=== PATIENT | female | born 1995 | race Caucasian/White ===

== ENCOUNTER 2020-09-19 00:31 | Inpatient (IN) | payer BC ==
[2020-09-19] MEDS ORDERED: Terbutaline 1 MG/ML SDV SUBCUT PRN (01:35)
[2020-09-19] MEDS ORDERED: Lidocaine 1% 50 ML MDV INJECT PRN (01:35)
[2020-09-19] MEDS ORDERED: Methylergonovine 0.2 MG/1 ML Amp IM PRN (01:35)
[2020-09-19] MEDS ORDERED: Carboprost Tromethamine 250 MCG/1 ML Amp IM PRN (01:35)
[2020-09-19] MEDS ORDERED: Sodium Chloride 0.9% 10 ML SDV IV PRN (01:35)
[2020-09-19] MEDS ORDERED: Butorphanol 1 MG/ML SDV IVPUSH PRN (01:35)
[2020-09-19] MEDS ORDERED: Nalbuphine 10 MG/1 ML Vial IVPUSH PRN (01:35)
[2020-09-19] MEDS ORDERED: Sodium Chloride 0.9% 10 ML Syringe FLUSH PRN (01:35)
[2020-09-19] MEDS ORDERED: Misoprostol 200 MCG Tab PO PRN (01:35)
[2020-09-19] MEDS ORDERED: Misoprostol 25 MCG (1/4 of 100 MCG) Tab VAG PRN ×2 (01:35)
[2020-09-19] MEDS ORDERED: Tranexamic Acid 1,000 MG in Sodium Chloride 0.9% 100 ML IV PRN (01:35)
[2020-09-19] MEDS ORDERED: Sodium Chloride 0.9% 2.5 ML Syringe FLUSH PRN (01:35)
[2020-09-19] MEDS ORDERED: Water For Irrigation,Sterile 1,000 ML Container IRR PRN (01:35)
[2020-09-19] MEDS ORDERED: Oxytocin/0.9 % Sodium Chloride 30 UNIT/500 ML BAG IV SCH ×2 (01:45)
[2020-09-19] MEDS: Lactated Ringers 1,000 ML IV SCH ×2 (05:00→10:15)
[2020-09-19] MEDS ORDERED: Ropivacaine HCl/PF 100 ML ONE (08:23)
--- NOTE | 2020-09-19 09:06 | PCM.PREANE ---
Preanesthetic Assessment - Procedure Proposed Procedure: continuous labor epidural - Anesthesia/Transfusion/Family Hx Anesthesia History: No Prior Anesthesia Family History of Anesthesia Reaction: No Transfusion History: No Prior Transfusion(s) - Review of Systems General: No Symptoms Pulmonary: No Symptoms Cardiovascular: No Symptoms Gastrointestinal: No Symptoms Neurological: No Symptoms Other: Reports: None - Physical Assessment Height: 5 ft 8 in Weight: 68.946 kg ASA Class: 2 Mental Status: Alert & Oriented x3 Airway Class: Mallampati = 1 Dentition: Reports: Normal Dentition ROM/Head Extension: Full Lungs: Clear to Auscultation, Normal Respiratory Effort Cardiovascular: Regular Rate, Regular Rhythm - Lab Values: Laboratory Last Values WBC 9.25 K/uL (4.0-11.0) 09/19/20 05:08 RBC 3.54 M/uL (4.30-5.90) L 09/19/20 05:08 Hgb 10.2 g/dL (12.0-16.0) L 09/19/20 05:08 Hct 32.3 % (36.0-46.0) L 09/19/20 05:08 MCV 91.2 fL (80.0-98.0) 09/19/20 05:08 MCH 28.8 pg (27.0-32.0) 09/19/20 05:08 MCHC 31.6 g/dL (31.0-37.0) 09/19/20 05:08 RDW Std Deviation 43.3 fl (28.0-62.0) 09/19/20 05:08 RDW Coeff of Linn 13 % (11.0-15.0) 09/19/20 05:08 Plt Count 287 K/uL (150-400) 09/19/20 05:08 MPV 10.20 fL (7.40-12.00) 09/19/20 05:08 Nucleated RBC % 0.0 /100WBC 09/19/20 05:08 Nucleated RBCs # 0 K/uL 09/19/20 05:08 SARS-CoV-2 RNA (FLAVIA) NEGATIVE (NEGATIVE) 09/19/20 00:45 Blood Type A POSITIVE 09/19/20 05:08 Antibody Screen NEGATIVE 09/19/20 05:08 - Allergies Allergies/Adverse Reactions: Allergies Allergy/AdvReac Type Severity Reaction Status Date / Time No Known Allergies Allergy Verified 09/19/20 07:26 - Acknowledgements Anesthesia Type Planned: Epidural Pt an Appropriate Candidate for the Planned Anesthesia: Yes Alternatives and Risks of Anesthesia Discussed w Pt/Guardian: Yes Pt/Guardian Understands and Agrees with Anesthesia Plan: Yes PreAnesthesia Questionnaire - Past Health History Medical/Surgical History: Denies Medical/Surgical History Cardiovascular History: Reports: None Respiratory History: Reports: None Gastrointestinal History: Reports: None Genitourinary History: Reports: None [employer] History: Reports: : 1 Para: 0 Musculoskeletal History: Reports: None Neurological History: Reports: None Psychiatric History: Reports: None Endocrine/Metabolic History: Reports: None Hematologic History: Reports: None Immunologic History: Reports: None - Past Surgical History Head Surgeries/Procedures: Reports: None - SUBSTANCE USE Tobacco Use Status *Q: Never Tobacco User Second Hand Smoke Exposure: No Recreational Drug Use History: No - CURRENT (IN HOUSE) MEDS Current Meds: Current Medications Butorphanol Tartrate (Stadol) 1 mg IVPUSH Q1H PRN PRN Reason: Pain Carboprost Tromethamine (Hemabate Ds) 250 mcg IM ASDIRECTED PRN PRN Reason: Post Hemorrhage Oxytocin/Sodium Chloride (Oxytocin 30 Unit/500 Ml-Ns) 30 unit in 500 mls @ 999 mls/hr IV TITRATE GREGOR Tranexamic Acid 1,000 mg/ (Sodium Chloride) 110 mls @ 660 mls/hr IV ONETIME PRN PRN Reason: Bleeding Oxytocin/Sodium Chloride (Oxytocin 30 Unit/500 Ml-Ns) 30 unit in 500 mls @ 2 mls/hr IV TITRATE GREGOR; Protocol Last Admin: 09/19/20 07:31 Dose: 2 munits/min, 2 mls/hr Documented by: Lactated Ringer's (Ringers, Lactated) 1,000 mls @ 150 mls/hr IV ASDIRECTED GREGOR Last Infusion: 09/19/20 07:32 Dose: Infused Documented by: Lidocaine HCl (Xylocaine 1%) 50 ml INJECT ONETIME PRN PRN Reason: Laceration repair Methylergonovine Maleate (Methergine) 0.2 mg IM ASDIRECTED PRN PRN Reason: Post Hemorrhage Misoprostol (Cytotec) 200 mcg PO ONETIME PRN PRN Reason: Post Hemorrhage Misoprostol (Cytotec) 25 mcg VAG ONETIME PRN PRN Reason: Cervical Ripening Misoprostol (Cytotec) 25 mcg VAG Q4H PRN PRN Reason: Cervical Ripening Nalbuphine HCl (Nubain) 10 mg IVPUSH Q1H PRN PRN Reason: Pain (severe 7-10) Sodium Chloride (Saline Flush) 10 ml FLUSH ASDIRECTED PRN PRN Reason: Keep Vein Open Sodium Chloride (Saline Flush) 2.5 ml FLUSH ASDIRECTED PRN PRN Reason: Keep Vein Open Sodium Chloride (Normal Saline) 10 ml IV ASDIRECTED PRN PRN Reason: IV Use Sterile Water (Sterile Water For Irrigation) 1,000 ml IRR ASDIRECTED PRN PRN Reason: delivery Terbutaline Sulfate (Brethine) 0.25 mg SUBCUT ASDIRECTED PRN PRN Reason: Tacysystole Discontinued Medications Ropivacaine (Naropin 0.2%) Confirm Administered Dose 100 mls @ as directed .ROUTE .[facility] ONE Stop: 09/19/20 08:24
[2020-09-19] MEDS ORDERED: ePHEDrine 50 MG/ML SDV ONE (09:09)
--- NOTE | 2020-09-19 15:18 | PCM.DEL ---
L & D Note - General Info Date of Service: 09/19/20 Mother's Due Date: 09/11/20 - Delivery Note Labor: Induced by Oxytocin Cervical Ripening Method: Misoprostil Delivery Outcome: Livebirth Infant Delivery Method: Spontaneous Vaginal Delivery-Single Infant Delivery Mode: Spontaneous Presentation: Left Occiput Anterior (ADELAIDA) Nuchal Cord: None Prep: Other Anesthesia Type: Epidural Amniotic Fluid Description: Clear Episiotomy Type: Midline Laceration: None Suture type: Vicryl Suture size: 3-0 Placenta: Intact, Spontaneous Cord: 3 Vessels Score 1 min: 8 Score 5 min: 9 Delivery Comments (Free Text/Narrative):: Liveborn male 8/9 weigth 3320 grams. - General Info Date of Service: 09/19/20 - Patient Data Weight - Most Recent: 68.946 kg I&O - Last 24 Hours: Intake & Output 09/19/20 09/19/20 09/19/20 06:59 14:59 22:59 Intake Total 1800 Balance 1800 Lab Results Last 24 Hours: Laboratory Results - last 24 hr 09/19/20 09/19/20 09/19/20 Range/Units 00:45 05:08 05:08 WBC 9.25 (4.0-11.0) K/uL RBC 3.54 L (4.30-5.90) M/uL Hgb 10.2 L (12.0-16.0) g/dL Hct 32.3 L (36.0-46.0) % MCV 91.2 (80.0-98.0) fL MCH 28.8 (27.0-32.0) pg MCHC 31.6 (31.0-37.0) g/dL RDW Std Deviation 43.3 (28.0-62.0) fl RDW Coeff of Linn 13 (11.0-15.0) % Plt Count 287 (150-400) K/uL MPV 10.20 (7.40-12.00) fL Nucleated RBC % 0.0 /100WBC Nucleated RBCs # 0 K/uL SARS-CoV-2 RNA (FLAVIA) NEGATIVE (NEGATIVE) Blood Type A POSITIVE Antibody Screen NEGATIVE Med Orders - Current: Current Medications Butorphanol Tartrate (Stadol) 1 mg IVPUSH Q1H PRN PRN Reason: Pain Carboprost Tromethamine (Hemabate Ds) 250 mcg IM ASDIRECTED PRN PRN Reason: Post Hemorrhage Oxytocin/Sodium Chloride (Oxytocin 30 Unit/500 Ml-Ns) 30 unit in 500 mls @ 999 mls/hr IV TITRATE GREGOR Tranexamic Acid 1,000 mg/ (Sodium Chloride) 110 mls @ 660 mls/hr IV ONETIME PRN PRN Reason: Bleeding Oxytocin/Sodium Chloride (Oxytocin 30 Unit/500 Ml-Ns) 30 unit in 500 mls @ 2 mls/hr IV TITRATE GREGOR; Protocol Last Titration: 09/19/20 11:29 Dose: 10 munits/min, 10 mls/hr Documented by: Lactated Ringer's (Ringers, Lactated) 1,000 mls @ 150 mls/hr IV ASDIRECTED GREGOR Last Admin: 09/19/20 10:15 Dose: 150 mls/hr Documented by: Lidocaine HCl (Xylocaine 1%) 50 ml INJECT ONETIME PRN PRN Reason: Laceration repair Methylergonovine Maleate (Methergine) 0.2 mg IM ASDIRECTED PRN PRN Reason: Post Hemorrhage Misoprostol (Cytotec) 200 mcg PO ONETIME PRN PRN Reason: Post Hemorrhage Misoprostol (Cytotec) 25 mcg VAG ONETIME PRN PRN Reason: Cervical Ripening Misoprostol (Cytotec) 25 mcg VAG Q4H PRN PRN Reason: Cervical Ripening Nalbuphine HCl (Nubain) 10 mg IVPUSH Q1H PRN PRN Reason: Pain (severe 7-10) Sodium Chloride (Saline Flush) 10 ml FLUSH ASDIRECTED PRN PRN Reason: Keep Vein Open Sodium Chloride (Saline Flush) 2.5 ml FLUSH ASDIRECTED PRN PRN Reason: Keep Vein Open Sodium Chloride (Normal Saline) 10 ml IV ASDIRECTED PRN PRN Reason: IV Use Sterile Water (Sterile Water For Irrigation) 1,000 ml IRR ASDIRECTED PRN PRN Reason: delivery Terbutaline Sulfate (Brethine) 0.25 mg SUBCUT ASDIRECTED PRN PRN Reason: Tacysystole Discontinued Medications Ephedrine Sulfate (Ephedrine Sulfate) Confirm Administered Dose 50 mg .ROUTE .[facility] ONE Stop: 09/19/20 09:10 Ropivacaine (Naropin 0.2%) Confirm Administered Dose 100 mls @ as directed .ROUTE .[facility] ONE Stop: 09/19/20 08:24 - Problem List & Annotations (1) Vaginal delivery SNOMED Code(s): 871826862 Code(s): O80 - ENCOUNTER FOR FULL-TERM UNCOMPLICATED DELIVERY Status: Acute Current Visit: Yes - Problem List Review Problem List Initiated/Reviewed/Updated: Yes
[2020-09-19] MEDS ORDERED: Acetaminophen 500 MG Tab PO PRN (15:19)
[2020-09-19] MEDS ORDERED: Lanolin 100% Cream 7 GM Tube TOP PRN (15:19)
[2020-09-19] MEDS ORDERED: Docusate Sodium 100 MG Cap PO PRN (15:19)
[2020-09-19] MEDS ORDERED: Bisacodyl 10 MG Supp RECTAL PRN (15:19)
[2020-09-19] MEDS ORDERED: Witch Hazel Medicated Pads 40/Jar TOP PRN (15:19)
[2020-09-19] MEDS ORDERED: Ibuprofen 400 MG Tab PO PRN (15:19)
[2020-09-19] MEDS ORDERED: Benzocaine/Menthol 20%-0.5% Spray 78 GM Cannister TOP PRN (15:19)
[2020-09-19] MEDS: Ibuprofen 800 MG Tab PO PRN (16:45)
[2020-09-19] MEDS: Acetaminophen 500 MG Tab PO PRN ×2 (17:24→21:43)
--- NOTE | 2020-09-19 18:09 | OR ---
SURGEON: Fani Boroks M.D. DATE OF PROCEDURE: 09/19/2020 PREOPERATIVE DIAGNOSES: A 41-1/7 weeks' intrauterine , postdates induction of labor. POSTOPERATIVE DIAGNOSES: A 41-1/7 weeks' intrauterine , postdates induction of labor. PROCEDURES: Cytotec and Pitocin induction of labor, term spontaneous vaginal delivery, midline episiotomy with repair. PRIMARY SURGEON: Fani Brooks MD ANESTHESIA: Epidural. ESTIMATED BLOOD LOSS: Less than 300 mL. FINDINGS: Liveborn male, score of 8 and 9, weighing 3320 g. Placenta spontaneous, Schultze intact, with 3 vessels. Midline episiotomy was repaired without extension. COMPLICATIONS: None known. DISPOSITION: Mother and baby in LDR in good condition. BRIEF HISTORY: This is a 25-year-old female, G1, P0. She presents at 41-1/7 weeks' gestation for induction of labor. She received Cytotec vaginally. By morning, she was 3 cm, 80%. She received an epidural for pain control. She was continued on Pitocin. By noon, she was on 10 milliunits per minute Pitocin. She was comfortable with her epidural. She had progressed to 7 cm. An artificial rupture of membranes was performed. She continued to progress to complete. DESCRIPTION OF PROCEDURE: With the patient in dorsal lithotomy position, the patient pushed over approximately a 40-minute time period to a 5+ station at which time the head was delivered spontaneously and atraumatically over the perineum with support. As she was nearing delivery, it was apparent that there would be a stellate incision if left unattended and therefore I did receive permission from her to cut a small midline episiotomy. The head was then delivered without difficulty in the left occiput anterior position with subsequent delivery of the 's shoulders and body without any difficulty. The was bulb suctioned by nose and mouth and the cord was clamped x2 and cut. The infant was handed to the mother in the presence of the nurse attending delivery. The is liveborn male, score of 8 and 9, weight of 3320 g. Cord blood was collected for cord ABGs as well as routine cord blood sampling. Pitocin was initiated after delivery of the infant to assist with delivery of the placenta, which was delivered spontaneously, Schultze intact, with 3 vessels. Upon inspection the pelvis and perineum, there were no periurethral, vaginal sidewall, cervical, or rectal lacerations. There was a midline episiotomy. This was repaired with multiple interrupted [id number] sutures in the midline followed by a running lock suture of the vaginal mucosa using 3-0 Vicryl, deep running suture of the same for the more superficial perineum, and a subcuticular suture of the same for the skin. Final sponge, needle, and instrument counts were correct. There were no complications. Mother and baby remained in LDR in good condition. JOE / ANDREINA /[id number]
[2020-09-20] MEDS: oxyCODONE 5 MG Tab PO PRN ×3 (01:30→15:57)
[2020-09-20] MEDS: Ibuprofen 800 MG Tab PO PRN ×2 (06:42→15:57)
--- NOTE | 2020-09-20 07:15 | PCM48HPAN ---
Post Anesthesia Note - EVALUATION WITHIN 48HRS OF ANESTHETIC Vital Signs in Normal Range: Yes Patient Participated in Evaluation: Yes Respiratory Function Stable: Yes Airway Patent: Yes Cardiovascular Function Stable: Yes Hydration Status Stable: Yes Pain Control Satisfactory: Yes Nausea and Vomiting Control Satisfactory: Yes Mental Status Recovered: Yes Vital Signs: Last Vital Signs Temp 96.7 F L 09/20/20 04:11 Pulse 88 09/20/20 04:11 Resp 16 09/20/20 04:11 BP 124/82 09/20/20 04:11 Pulse Ox 99 09/20/20 04:11 - COMMENTS/OBSERVATIONS Free Text/Narrative:: Pt. reports getting out of bed without issue. No anesthesia issues.
--- NOTE | 2020-09-20 13:14 | PCM.PNPP ---
- General Info Date of Service: 09/20/20 Subjective Update: 25yo P1 s/d , PPD1 Ambulating , , tolerating regular diet Functional Status: Reports: Pain Controlled, Tolerating Diet, Ambulating, Urinating - Review of Systems General: Reports: No Symptoms HEENT: Reports: No Symptoms Pulmonary: Reports: No Symptoms Cardiovascular: Reports: No Symptoms Gastrointestinal: Reports: No Symptoms Genitourinary: Reports: No Symptoms Musculoskeletal: Reports: No Symptoms Skin: Reports: No Symptoms Neurological: Reports: No Symptoms Psychiatric: Reports: No Symptoms - General Info Date of Service: 09/20/20 - Patient Data Vital Signs - Most Recent: Last Vital Signs Temp 36.7 C 09/20/20 08:00 Pulse 91 09/20/20 08:00 Resp 16 09/20/20 08:00 BP 110/64 09/20/20 08:00 Pulse Ox 97 09/20/20 08:00 Weight - Most Recent: 68.946 kg I&O - Last 24 Hours: Intake & Output 09/19/20 09/20/20 09/20/20 22:59 06:59 14:59 Intake Total 1432 Balance 1432 Lab Results - Last 24 Hours: Laboratory Results - last 24 hr 09/19/20 09/20/20 Range/Units 14:41 05:28 Hgb 9.5 L (12.0-16.0) g/dL Hct 29.5 L (36.0-46.0) % Cord ABG pH 7.158 L (7.18-7.38) Cord ABG Base Excess -8 (-10--2) Cord VBG pH 7.291 (7.25-7.45) Cord VBG Base Excess -8 (-10--2) Med Orders - Current: Current Medications Acetaminophen (Tylenol Extra Strength) 500 mg PO Q4H PRN PRN Reason: Pain Last Admin: 09/20/20 10:58 Dose: 500 mg Documented by: Acetaminophen (Tylenol Extra Strength) 1,000 mg PO Q4H PRN PRN Reason: Pain Last Admin: 09/19/20 21:43 Dose: 1,000 mg Documented by: Benzocaine/Menthol (Dermoplast Pain Relief 20%-0.5% [place]) 78 gm TOP ASDIRECTED PRN PRN Reason: Perineal Comfort Measure Last Admin: 09/19/20 16:44 Dose: 1 applic Documented by: Bisacodyl (Dulcolax) 10 mg RECTAL ONETIME PRN PRN Reason: Constipation Docusate Sodium (Colace) 100 mg PO BID PRN PRN Reason: Constipation Last Admin: 09/19/20 21:43 Dose: 100 mg Documented by: Emollient Ointment (Lansinoh Hpa) 0 gm TOP ASDIRECTED PRN PRN Reason: Sore Nipples Last Admin: 09/19/20 16:43 Dose: 1 applic Documented by: Ibuprofen (Motrin) 400 mg PO Q4H PRN PRN Reason: Pain Ibuprofen (Motrin) 800 mg PO Q6H PRN PRN Reason: Pain Last Admin: 09/20/20 06:42 Dose: 800 mg Documented by: Oxycodone HCl (Oxycodone) 5 mg PO Q2H PRN PRN Reason: Pain Last Admin: 09/20/20 10:58 Dose: 5 mg Documented by: Delmar Iverson) 1 pad TOP ASDIRECTED PRN PRN Reason: comfort care Last Admin: 09/19/20 16:42 Dose: 1 pad Documented by: Discontinued Medications Butorphanol Tartrate (Stadol) 1 mg IVPUSH Q1H PRN PRN Reason: Pain Carboprost Tromethamine (Hemabate Ds) 250 mcg IM ASDIRECTED PRN PRN Reason: Post Hemorrhage Ephedrine Sulfate (Ephedrine Sulfate) Confirm Administered Dose 50 mg .ROUTE .[facility] ONE Stop: 09/19/20 09:10 Oxytocin/Sodium Chloride (Oxytocin 30 Unit/500 Ml-Ns) 30 unit in 500 mls @ 999 mls/hr IV TITRATE GREGOR Tranexamic Acid 1,000 mg/ (Sodium Chloride) 110 mls @ 660 mls/hr IV ONETIME PRN PRN Reason: Bleeding Oxytocin/Sodium Chloride (Oxytocin 30 Unit/500 Ml-Ns) 30 unit in 500 mls @ 2 mls/hr IV TITRATE GREGOR; Protocol Last Titration: 09/19/20 16:00 Dose: Infused Documented by: Lactated Ringer's (Ringers, Lactated) 1,000 mls @ 150 mls/hr IV ASDIRECTED GREGOR Last Infusion: 09/19/20 15:54 Dose: 0 mls/hr Documented by: Ropivacaine (Naropin 0.2%) Confirm Administered Dose 100 mls @ as directed .ROUTE .[employer] ONE Stop: 09/19/20 08:24 Lidocaine HCl (Xylocaine 1%) 50 ml INJECT ONETIME PRN PRN Reason: Laceration repair Methylergonovine Maleate (Methergine) 0.2 mg IM ASDIRECTED PRN PRN Reason: Post Hemorrhage Misoprostol (Cytotec) 200 mcg PO ONETIME PRN PRN Reason: Post Hemorrhage Misoprostol (Cytotec) 25 mcg VAG ONETIME PRN PRN Reason: Cervical Ripening Misoprostol (Cytotec) 25 mcg VAG Q4H PRN PRN Reason: Cervical Ripening Nalbuphine HCl (Nubain) 10 mg IVPUSH Q1H PRN PRN Reason: Pain (severe 7-10) Sodium Chloride (Saline Flush) 10 ml FLUSH ASDIRECTED PRN PRN Reason: Keep Vein Open Sodium Chloride (Saline Flush) 2.5 ml FLUSH ASDIRECTED PRN PRN Reason: Keep Vein Open Sodium Chloride (Normal Saline) 10 ml IV ASDIRECTED PRN PRN Reason: IV Use Sterile Water (Sterile Water For Irrigation) 1,000 ml IRR ASDIRECTED PRN PRN Reason: delivery Terbutaline Sulfate (Brethine) 0.25 mg SUBCUT ASDIRECTED PRN PRN Reason: Tacysystole - Infant Interaction Support Person: - Recovery Exam Fundal Tone: Firm Fundal Level: 2 Fingerbreadths Below Umbilicus Fundal Placement: Midline Lochia Amount: Scant Lochia Color: Rubra/Red Perineum Description: Intact, Minimal Bruising/Swelling Episiotomy/Laceration: Approximated Bladder Status: Voiding Urinary Elimination: Voided - Exam General: Alert HEENT: Pupils Equal Neck: Supple Lungs: Clear to Auscultation, Normal Respiratory Effort Cardiovascular: Regular Rate, Regular Rhythm GI/Abdominal Exam: Normal Bowel Sounds Extremities: Normal Inspection Neurological: No New Focal Deficit Psy/Mental Status: Alert - Problem List & Annotations (1) Vaginal delivery SNOMED Code(s): 988011397 Code(s): O80 - ENCOUNTER FOR FULL-TERM UNCOMPLICATED DELIVERY Status: Acute Current Visit: Yes - Problem List Review Problem List Initiated/Reviewed/Updated: No - Assessment Assessment:: 25yo P1 s/d , PPD1 - Plan Plan:: Discharge home Routine care Unsure about contraceptive options will decide before visit Continue vitamins
== END 2020-09-20 17:20 | disposition home or self-care (01) | DRG 560 ==
LOC: MW.OBCHECK 00:31 → MW.OB 00:33 → MW.OBCHECK 01:35 → MW.OB 01:35 → OBSVTOIN 14:41 → MW.OB 18:34
PROVIDERS: ADMIT Obstetrics & Gynecology; ATTEND Obstetrics & Gynecology
PROC: 10E0XZZ Delivery of Products of Conception, External Approach (ICD-10-PCS; principal; 2020-09-19)
PROC: 10907ZC Drainage of Amniotic Fluid, Therapeutic from Products of Conception, Via Natural or Artificial Opening (ICD-10-PCS; 2020-09-19)
PROC: 3E0P7VZ Introduction of Hormone into Female Reproductive, Via Natural or Artificial Opening (ICD-10-PCS; 2020-09-19)
PROC: 3E033VJ Introduction of Other Hormone into Peripheral Vein, Percutaneous Approach (ICD-10-PCS; 2020-09-19)
PROC: 0W8NXZZ Division of Female Perineum, External Approach (ICD-10-PCS; 2020-09-19)
PROC: 3E0R3BZ Introduction of Anesthetic Agent into Spinal Canal, Percutaneous Approach (ICD-10-PCS; 2020-09-19)
PROC: 00HU33Z Insertion of Infusion Device into Spinal Canal, Percutaneous Approach (ICD-10-PCS; 2020-09-19)
DX: O48.0 Post-term pregnancy (principal); Z37.0 Single live birth; Z3A.41 41 weeks gestation of pregnancy; Z20.822 Contact with and (suspected) exposure to COVID-19
CPT/HCPCS: 36415; 51702; 59025; 59409; 82803; 85014; 85018; 85027; 86592; 86850; 86900; 86901; A9270-GY; J2590; J2795; J7120; U0002

== ENCOUNTER 2023-09-24 16:37 | Emergency (ER) | payer SELFPAY ==
[2023-09-24 18:17] LABS: APPEARANCE,URINE CLEAR; BILIRUBIN,URINE NEGATIVE (NEGATIVE); COLOR,URINE YELLOW; GLUCOSE,URINE NEGATIVE (NEGATIVE); KETONES,URINE >=80 mg/dL (NEGATIVE); LEUKOCYTE ESTERASE,URINE NEGATIVE (NEGATIVE); NITRITE,URINE NEGATIVE (NEGATIVE); OCCULT BLOOD,URINE SMALL (NEGATIVE); PH,URINE 5.5 (5.0-8.0); PROTEIN,URINE NEGATIVE (NEGATIVE); UROBILINOGEN,URINE 0.2 EU/dL (<2.0)
[2023-09-24 18:33] LABS: BACTERIA,URINE FEW (NEGATIVE); MUCUS,URINE MODERATE (NONE-MOD); SQUAMOUS EPITHELIAL CELLS,UR FEW; WBC,URINE 0-2 (0-5/HPF)
== END 2023-09-24 19:02 | disposition left against medical advice (07) ==
LOC: MW.ED 16:37
DX: Z53.21 Procedure and treatment not carried out due to patient leaving prior to being seen by health care provider (principal)
CPT/HCPCS: 81001; 81025

== ENCOUNTER 2024-05-03 21:04 | Inpatient (IN) | payer BC ==
[2024-05-03] MEDS ORDERED: Butorphanol 2 MG/ML SDV IVPUSH PRN (22:37)
[2024-05-03] MEDS ORDERED: Ondansetron 4 MG/2 ML SDV IVPUSH PRN (22:37)
[2024-05-03] MEDS ORDERED: Methylergonovine 0.2 MG/1 ML Amp IM PRN (22:37)
[2024-05-03] MEDS ORDERED: Sodium Chloride 0.9% 2.5 ML Syringe FLUSH PRN (22:37)
[2024-05-03] MEDS ORDERED: Sodium Chloride 0.9% 10 ML Syringe FLUSH PRN (22:37)
[2024-05-03] MEDS ORDERED: Water For Irrigation,Sterile 1,000 ML Container IRR PRN (22:37)
[2024-05-03] MEDS ORDERED: Terbutaline 1 MG/ML SDV SUBCUT PRN (22:37)
[2024-05-03] MEDS ORDERED: Carboprost Tromethamine 250 MCG/1 mL Vial IM PRN (22:37)
[2024-05-03] MEDS ORDERED: Sodium Chloride 0.9% 20 ML SDV IV PRN (22:37)
[2024-05-03] MEDS ORDERED: Oxytocin/0.9 % Sodium Chloride 30 UNIT/500 ML BAG IV SCH (22:45)
[2024-05-03 23:31] LABS: HEMOGLOBIN 12.8 g/dL (12.0-16.0); MEAN CORPUSCULAR HEMOGLOBIN 31.3 pg (28.0-32.0); MEAN CORPUSCULAR HGB CONC 33.7 g/dL (32.0-36.0); MEAN CORPUSCULAR VOLUME 92.9 fL (83.0-99.0); MEAN PLATELET VOLUME 10.5 fL (9.4-12.3); PLATELET COUNT,PLT 282 K/uL (150-400); RED BLOOD CELL COUNT 4.09 M/uL (4.10-5.30); WHITE BLOOD CELL COUNT,WBC 9.89 K/uL (3.9-11.3)
[2024-05-03] MEDS: Ampicillin 2 GM in Sodium Chloride 0.9% 100 ML IV ONE (23:45)
[2024-05-03] MEDS: Lactated Ringers 1,000 ML IV SCH (23:45)
[2024-05-04] MEDS: Oxytocin/0.9 % Sodium Chloride 30 UNIT/500 ML BAG IV SCH (00:15)
[2024-05-04] MEDS: Ampicillin 1 GM in Sodium Chloride 0.9% 50 ML IV SCH (03:45)
[2024-05-04] MEDS: Nalbuphine 10 MG/1 ML Vial IVPUSH PRN (04:00)
[2024-05-04] MEDS ORDERED: Phenylephrine HCl In 0.9% NaCl 1 MG/10 ML Syringe ONE (09:29)
[2024-05-04] MEDS ORDERED: Bupivacaine 0.5% 10 ML SDV ONE (09:29)
[2024-05-04] MEDS ORDERED: Ropivacaine HCl/PF 200 ML ONE (09:29)
[2024-05-04] MEDS: Ropivacaine HCl/PF 400 MG in Premix Bag 1 BAG EPIDUR SCH (09:45)
[2024-05-04] MEDS ORDERED: ePHEDrine 50 MG/ML SDV IM PRN (10:21)
[2024-05-04] MEDS ORDERED: Phenylephrine HCl In 0.9% NaCl 1 MG/10 ML Syringe IVPUSH PRN (10:21)
[2024-05-04] MEDS ORDERED: Bupivacaine 0.5% 10 ML SDV INJECT ONE (10:21)
[2024-05-04] MEDS ORDERED: ePHEDrine 50 MG/ML SDV IVPUSH PRN (10:21)
[2024-05-04] MEDS: Lidocaine 1% 50 ML MDV INJECT PRN (10:30)
[2024-05-04] MEDS: Tranexamic Acid IN NACL,ISO-OS 1,000 MG in Premix Bag 1 BAG IV PRN (10:30)
[2024-05-04] MEDS ORDERED: dexmedeTOMIDine HCl 200 MCG/2 ML SDV EPIDUR SCH (10:30)
[2024-05-04] MEDS: Misoprostol 200 MCG Tab PO PRN (10:36)
[2024-05-04] MEDS ORDERED: Famotidine 20 MG Tab PO PRN (13:23)
[2024-05-04] MEDS ORDERED: Acetaminophen 500 MG Tab PO PRN (13:23)
[2024-05-04] MEDS ORDERED: Simethicone 80 MG Tab.Chew PO PRN (13:23)
[2024-05-04] MEDS ORDERED: Aluminum Hydroxide/Magnesium Hydroxide/Simethicone Susp 30 ML Cup PO PRN (13:23)
[2024-05-04] MEDS ORDERED: Lanolin 100% Cream 7 GM Tube TOP PRN (13:23)
[2024-05-04 13:40] LABS: PH,UMBILICAL ARTERIAL 7.252 (7.18-7.38); PH,UMBILICAL VENOUS 7.292 (7.25-7.45)
[2024-05-04] MEDS: Ibuprofen 800 MG Tab PO PRN (14:46)
[2024-05-04] MEDS: Witch Hazel Medicated Pads 40/Jar TOP PRN (14:46)
[2024-05-04] MEDS: Benzocaine/Menthol 20%-0.5% Spray 78 GM Cannister TOP PRN (14:46)
[2024-05-04] MEDS: Docusate Sodium 100 MG Cap PO PRN (19:56)
[2024-05-05 06:00] LABS: BASOPHILS ABSOLUTE AUTO 0.05 K/uL (0.00-0.20); BASOPHILS PERCENT AUTO 0.4 % (0.0-1.0); EOSINOPHILS ABSOLUTE AUTO 0.18 K/uL (0.00-0.45); EOSINOPHILS PERCENT AUTO 1.4 % (0.0-6.0); HEMATOCRIT 33.1 % (37.0-47.0); HEMOGLOBIN 11.2 g/dL (12.0-16.0); IMMATURE GRAN ABSOLUTE AUTO 0.04 K/uL (0.00-0.05); IMMATURE GRAN PERCENT AUTO 0.3 % (0.0-0.4); LYMPHOCYTES ABSOLUTE AUTO 3.15 K/uL (1.00-4.80); LYMPHOCYTES PERCENT AUTO 23.9 % (24.0-44.0); MEAN CORPUSCULAR HEMOGLOBIN 31.6 pg (28.0-32.0); MEAN CORPUSCULAR HGB CONC 33.8 g/dL (32.0-36.0); MEAN CORPUSCULAR VOLUME 93.5 fL (83.0-99.0); MEAN PLATELET VOLUME 9.7 fL (9.4-12.3); MONOCYTES ABSOLUTE AUTO 1.06 K/uL (0.00-0.80); NEUTROPHILS ABSOLUTE AUTO 8.69 K/uL (1.80-7.70); PLATELET COUNT,PLT 220 K/uL (150-400); RED BLOOD CELL COUNT 3.54 M/uL (4.10-5.30); WHITE BLOOD CELL COUNT,WBC 13.17 K/uL (3.9-11.3)
== END 2024-05-05 13:26 | disposition home or self-care (01) | DRG 560 ==
LOC: MW.OB 21:04 → MW.OBCHECK 21:04 → OBSVTOIN 22:37 → MW.OBCHECK 22:37 → UNDOADMOB 22:37 → MW.OB 22:37 → INTOOBSV 22:37 → UNDOADMOB 05-04 10:15 → OBSVTOIN 05-04 10:15 → MW.OB 05-04 10:15 → INTOOBSV 05-04 10:15 → MW.OB 05-04 14:45 → UNDODISIN 05-05 13:26
PROVIDERS: ADMIT Obstetrics & Gynecology; ATTEND Obstetrics & Gynecology
PROC: 10E0XZZ Delivery of Products of Conception, External Approach (ICD-10-PCS; principal; 2024-05-04)
PROC: 0KQM0ZZ Repair Perineum Muscle, Open Approach (ICD-10-PCS; 2024-05-04)
PROC: 3E0R3BZ Introduction of Anesthetic Agent into Spinal Canal, Percutaneous Approach (ICD-10-PCS; 2024-05-04)
PROC: 00HU33Z Insertion of Infusion Device into Spinal Canal, Percutaneous Approach (ICD-10-PCS; 2024-05-04)
DX: O36.8130 Decreased fetal movements, third trimester, not applicable or unspecified (principal); Z3A.40 40 weeks gestation of pregnancy; Z37.0 Single live birth; O48.0 Post-term pregnancy; O99.824 Streptococcus B carrier state complicating childbirth; O70.1 Second degree perineal laceration during delivery
CPT/HCPCS: 01967; 36415; 59025; 59409; 82803; 84112; 85025; 85027; 86592; 86850; 86900; 86901; A9270-GY; J0290; J0665; J2001; J2300; J2371; J2590; J2795; J3490; J7120

== ENCOUNTER 2025-01-18 12:19 | Emergency (ER) | payer BC, OTHER ==
[2025-01-18] MEDS ORDERED: Sodium Chloride 0.9% 20 ML SDV IV PRN (12:40)
[2025-01-18] MEDS ORDERED: Sodium Chloride 0.9% 10 ML Syringe FLUSH PRN (12:40)
[2025-01-18] MEDS ORDERED: Sodium Chloride 0.9% 2.5 ML Syringe FLUSH PRN (12:40)
[2025-01-18 14:19] LABS: BASOPHILS ABSOLUTE AUTO 0.02 K/uL (0.00-0.20); BASOPHILS PERCENT AUTO 0.2 % (0.0-1.0); EOSINOPHILS ABSOLUTE AUTO 0.08 K/uL (0.00-0.45); EOSINOPHILS PERCENT AUTO 0.8 % (0.0-6.0); HEMATOCRIT 37.7 % (37.0-47.0); HEMOGLOBIN 13.2 g/dL (12.0-16.0); IMMATURE GRAN ABSOLUTE AUTO 0.03 K/uL (0.00-0.05); IMMATURE GRAN PERCENT AUTO 0.3 % (0.0-0.4); LYMPHOCYTES ABSOLUTE AUTO 2.03 K/uL (1.00-4.80); LYMPHOCYTES PERCENT AUTO 19.5 % (24.0-44.0); MEAN CORPUSCULAR HEMOGLOBIN 32.9 pg (28.0-32.0); MEAN PLATELET VOLUME 9.2 fL (9.4-12.3); MONOCYTES ABSOLUTE AUTO 0.69 K/uL (0.00-0.80); MONOCYTES PERCENT AUTO 6.6 % (0.0-8.0); NEUTROPHILS ABSOLUTE AUTO 7.56 K/uL (1.80-7.70); NEUTROPHILS PERCENT AUTO 72.6 % (41.0-71.0); PLATELET COUNT,PLT 259 K/uL (150-400); RED BLOOD CELL COUNT 4.01 M/uL (4.10-5.30); WHITE BLOOD CELL COUNT,WBC 10.41 K/uL (3.9-11.3)
[2025-01-18 14:42] LABS: INR 0.96 (0.86-1.11); PTT,PARTIAL THROMBOPLSTIN TIME 26.2 SEC (23.9-30.7)
[2025-01-18 14:45] LABS: A/G RATIO 0.8 (0.9-1.6); ALBUMIN 3.1 g/dL (3.4-5.0); BILIRUBIN TOTAL 0.5 mg/dL (0.2-1.0); CALCIUM 8.4 mg/dL (8.5-10.1); CREATININE 0.6 mg/dL (0.6-1.0); EST CRCL DRUG DOSING (CG) 138.3 mL/min; MAGNESIUM 1.7 mg/dL (1.8-2.4); POTASSIUM,K 3.4 mmol/L (3.5-5.1); PROTEIN TOTAL,TP 7.2 g/dL (6.4-8.2)
[2025-01-18 15:33] LABS: APPEARANCE,URINE CLEAR; BILIRUBIN,URINE NEGATIVE (NEGATIVE); COLOR,URINE YELLOW; GLUCOSE,URINE NEGATIVE (NEGATIVE); KETONES,URINE 15 mg/dL (NEGATIVE); LEUKOCYTE ESTERASE,URINE NEGATIVE (NEGATIVE); NITRITE,URINE NEGATIVE (NEGATIVE); OCCULT BLOOD,URINE NEGATIVE (NEGATIVE); PH,URINE 6.5 (5.0-8.0); PROTEIN,URINE NEGATIVE (NEGATIVE); UROBILINOGEN,URINE 0.2 EU/dL (<2.0)
[2025-01-18] MEDS: Calcium Carbonate 500 MG Tab.Chew PO ONE (15:52)
[2025-01-18] MEDS: Magnesium Oxide 400 MG Tab PO ONE (15:52)
[2025-01-18] MEDS: Potassium Chloride 20 MEQ Tab.ER PO ONE (15:52)
== END 2025-01-18 15:49 | disposition home or self-care (01) ==
LOC: MW.ED 12:19
DX: O99.891 Other specified diseases and conditions complicating pregnancy (principal); R55 Syncope and collapse; Z3A.16 16 weeks gestation of pregnancy; Z79.899 Other long term (current) drug therapy; W19.XXXA Unspecified fall, initial encounter
CPT/HCPCS: 36415; 76815; 76815-26; 80053; 81003; 83735; 85025; 85610; 85730; 93005; 99283; 99284